=== PATIENT | male | born 1960 | race Caucasian/White ===

== ENCOUNTER 2018-06-28 10:17 | Emergency (ER) | payer MEDICAID ==
[~2018-06-28] VITALS: Ht 185.4 cm; Wt 65.0 kg
[~2018-06-28 10:17] MED LIST: BUDE10.2 IH; HYDR-882 PO; NAPR-685 PO; OMEP-110 PO
[2018-06-28 10:26] VITALS: BP 169/101
== END 2018-06-28 11:23 | disposition home or self-care (01) ==
LOC: ED 11:11
DX: L24.9 Irritant contact dermatitis, unspecified cause (principal); K21.9 Gastro-esophageal reflux disease without esophagitis; I10 Essential (primary) hypertension; J44.9 Chronic obstructive pulmonary disease, unspecified; F17.200 Nicotine dependence, unspecified, uncomplicated
CPT/HCPCS: 99283; J7512

== ENCOUNTER 2018-08-03 21:35 | Emergency (ER) | payer MEDICAID ==
[~2018-08-03] VITALS: Ht 182.9 cm; Wt 70.0 kg
[2018-08-03 21:45] VITALS: BP 164/87
== END 2018-08-03 22:27 | disposition left against medical advice (07) ==
LOC: ED 22:25
DX: R21 Rash and other nonspecific skin eruption (principal); Z53.21 Procedure and treatment not carried out due to patient leaving prior to being seen by health care provider

== ENCOUNTER 2018-08-13 15:17 | Emergency (ER) | payer MEDICAID ==
[~2018-08-13] VITALS: Ht 182.9 cm; Wt 68.7 kg
[2018-08-13 16:04] VITALS: BP 133/76
== END 2018-08-13 17:06 | disposition left against medical advice (07) ==
LOC: ED 16:15
DX: R21 Rash and other nonspecific skin eruption (principal)
CPT/HCPCS: 99281

== ENCOUNTER 2018-08-13 19:49 | Emergency (ER) | payer MEDICAID ==
[~2018-08-13] VITALS: Ht 182.9 cm; Wt 68.5 kg
[2018-08-13 19:54] VITALS: BP 147/78
[2018-08-13] MEDS ORDERED: TRIAMCINOLONE OINT 0.1%, 15GM TP ONE (20:30)
[2018-08-13 20:33] LABS: BASOPHILS # (AUTO) 0.05 x10^3/uL (0-0.1); BASOPHILS % (AUTO) 1 % (0-1); EOSINOPHILS # (AUTO) 0.27 x10^3/uL (0-0.4); EOSINOPHILS % (AUTO) 3 % (1-7); LYMPHOCYTES # (AUTO) 2.17 x10^3/uL (1-3.4); LYMPHOCYTES % (AUTO) 21 % (22-44); MD NO; MEAN CORPUSCULAR HEMOGLOBIN 31.1 pg (27.5-34.5); MEAN CORPUSCULAR HGB CONC 33.5 g/dL (33.2-36.2); MEAN CORPUSCULAR VOLUME 92.8 fL (81-97); MEAN PLATELET VOLUME 6.9 fL (7.4-10.4); MONOCYTES # (AUTO) 1.17 x10^3/uL (0.2-0.8); MONOCYTES % (AUTO) 11 % (2-9); NEUTROPHILS # (AUTO) 6.96 x10^3/uL (1.8-6.8); NEUTROPHILS % (AUTO) 66 % (42-75); PLATELET COUNT 444 x10^3/uL (130-400); RED CELL DISTRIBUTION WIDTH 13.7 % (9.4-14.8)
[2018-08-13 20:42] LABS: ANION GAP 12 mmol/L (5-15); CALCIUM 8.7 mg/dL (8.5-10.1); CHLORIDE 105 mmol/L (98-107)
[2018-08-13 20:43] LABS: CREATININE 0.97 mg/dL (0.7-1.3)
== END 2018-08-13 21:28 | disposition home or self-care (01) ==
LOC: ED 21:00
DX: R21 Rash and other nonspecific skin eruption (principal); M79.89 Other specified soft tissue disorders; K21.9 Gastro-esophageal reflux disease without esophagitis; Z86.73 Personal history of transient ischemic attack (TIA), and cerebral infarction without residual deficits; J44.9 Chronic obstructive pulmonary disease, unspecified; M19.90 Unspecified osteoarthritis, unspecified site; Z79.899 Other long term (current) drug therapy
CPT/HCPCS: 36415; 80048; 85025; 99284

== ENCOUNTER 2019-01-28 20:23 | Emergency (ER) | payer MEDICAID ==
[~2019-01-28 20:23] MED LIST changes: +HYDR-3653 PO; -HYDR-882 PO
[2019-01-28 20:54] LABS: BASOPHILS # (AUTO) 0.07 x10^3/uL (0-0.1); BASOPHILS % (AUTO) 1 % (0-1); EOSINOPHILS # (AUTO) 0.24 x10^3/uL (0-0.4); EOSINOPHILS % (AUTO) 3 % (1-7); LYMPHOCYTES # (AUTO) 2.48 x10^3/uL (1-3.4); LYMPHOCYTES % (AUTO) 27 % (22-44); MD NO; MEAN CORPUSCULAR HGB CONC 33.9 g/dL (33.2-36.2); MEAN CORPUSCULAR VOLUME 91.4 fL (81-97); MONOCYTES # (AUTO) 0.88 x10^3/uL (0.2-0.8); MONOCYTES % (AUTO) 10 % (2-9); NEUTROPHILS # (AUTO) 5.55 x10^3/uL (1.8-6.8); NEUTROPHILS % (AUTO) 60 % (42-75); PLATELET COUNT 361 x10^3/uL (130-400); RED BLOOD COUNT 4.63 x10^6/uL (4.38-5.82); RED CELL DISTRIBUTION WIDTH 13.8 % (9.4-14.8)
--- NOTE | 2019-01-28 21:05 | NUR ---
PT RESTING ON CHRISSY SLADEAILS UP X2, CALL LIGHT WITHIN REACH. AWAITING LAB RESULT, PROVIDED PT WITH URINE CUP FOR SAMPLE
[2019-01-28 21:07] LABS: ALANINE AMINOTRANSFERASE 17 U/L (12-78); ALBUMIN 3.9 g/dL (3.4-5.0); ANION GAP 6 mmol/L (5-15); CALCIUM 8.9 mg/dL (8.5-10.1); CHLORIDE 107 mmol/L (98-107); CREATININE 1.05 mg/dL (0.7-1.3)
[2019-01-28 21:10] LABS: ALKALINE PHOSPHATASE 94 U/L (45-117); BILIRUBIN,TOTAL 0.2 mg/dL (0.2-1.0); TOTAL PROTEIN 7.2 g/dL (6.4-8.2)
--- NOTE | 2019-01-28 21:20 | NUR ---
URINE SAMPLE SENT TO LAB.
[2019-01-28] MEDS ORDERED: SODIUM CHLORIDE FLUSH 10ML SYR IVF ONE (21:30)
[2019-01-28 21:37] LABS: MICROSCOPIC NOT IND
[2019-01-28 21:48] LABS: CULTURE INDICATED? NO
[2019-01-28] MEDS ORDERED: OMNIPAQUE 350 MG/ML, 100ML BOTTLE ONE (22:21)
[2019-01-28 22:29] VITALS: BP 148/94
[2019-01-28] MEDS ORDERED: FLUT5POW4 NAS (22:33)
[2019-01-28] MEDS ORDERED: ALBU18HF INH (22:33)
[2019-01-28] MEDS ORDERED: MELO7.5T31 PO (22:33)
[2019-01-28] MEDS ORDERED: FAMO20TA7 PO (22:33)
--- NOTE | 2019-01-28 22:34 | NUR ---
PT RESTING ON GURNEY, MONITORS IN PLACE, CALL LIGHT WITHIN REACH, DENIES NEEDS AT THIS TIME. AWAITING CT RESULT
== END 2019-01-28 23:03 | disposition home or self-care (01) ==
LOC: ED 22:26
DX: R10.31 Right lower quadrant pain (principal); K76.0 Fatty (change of) liver, not elsewhere classified; D73.89 Other diseases of spleen; K21.9 Gastro-esophageal reflux disease without esophagitis; J44.9 Chronic obstructive pulmonary disease, unspecified; F17.200 Nicotine dependence, unspecified, uncomplicated; M19.90 Unspecified osteoarthritis, unspecified site; Z86.718 Personal history of other venous thrombosis and embolism
CPT/HCPCS: 36415; 74177; 80053; 81003; 83690; 85025; 99284; Q9967

== ENCOUNTER 2019-03-19 14:25 | Emergency (ER) | payer MEDICAID ==
[~2019-03-19] VITALS: Ht 185.4 cm; Wt 70.0 kg
[~2019-03-19 14:25] MED LIST changes: +ALBU18HF INH; +FAMO20TA7 PO; +FLUT5POW4 NAS; +MELO7.5T31 PO
[2019-03-19 14:27] VITALS: BP 161/67
--- NOTE | 2019-03-19 15:18 | NUR ---
PT GIVEN DC INSTRUCTIONS AND SCRIPT, EDUCATED REGARDING RX FOR TRIAMCINOLONE AND PREDNISONE. PT A&O, RESPS EVEN AND UNLABORED, NADN AT DC.
== END 2019-03-19 15:19 | disposition home or self-care (01) ==
LOC: ED 15:10
DX: L20.9 Atopic dermatitis, unspecified (principal); J44.9 Chronic obstructive pulmonary disease, unspecified; K21.9 Gastro-esophageal reflux disease without esophagitis
CPT/HCPCS: 99283

== ENCOUNTER 2019-04-04 05:04 | Emergency (ER) | payer MEDICAID ==
[~2019-04-04] VITALS: Ht 185.4 cm; Wt 71.3 kg
--- NOTE | 2019-04-04 05:29 | NUR ---
PT RESTING IN GURNEY AT THIS TIME. NADN. PT CALM AT THIS TIME. AWAITING ERP FOR PT HISTORY AND ASSESSMENT. PT HAS CALL LIGHT WITHIN REACH.
[2019-04-04] MEDS ORDERED: MAALOX/HYOSCYAMINE/LIDOCAINE 45 ML BTL ONE (05:36)
--- NOTE | 2019-04-04 05:44 | NUR ---
PT MEDICATED PER MAR
[2019-04-04] MEDS ORDERED: MAALOX/HYOSCYAMINE/LIDOCAINE 45 ML BTL PO ONE (06:00)
--- NOTE | 2019-04-04 06:43 | NUR ---
PT STATES THAT HE IS FEELING BETTER AND THAT "THE OBJECT IS STARTING TO GO DOWN MY THROAT". PT HAS CALL LIGHT WITHIN REACH AT THIS TIME.
--- NOTE | 2019-04-04 07:03 | NUR ---
BS REPORT OF PT TO ROBERT NGUYEN. ALL QUESTIONS ANSWERED.
--- NOTE | 2019-04-04 07:10 | NUR ---
Report from Aric JONES. Pt has NAD at this time. Pending d/c
--- NOTE | 2019-04-04 07:19 | NUR ---
D/c paperwork given, pt verbalizes understanding and f/u as needed. Pt ambulated steadily out of ED. No additional questions or concerns.
[2019-04-04 07:20] VITALS: BP 127/93
== END 2019-04-04 07:26 | disposition home or self-care (01) ==
LOC: ED 06:08
DX: S27.818A Other injury of esophagus (thoracic part), initial encounter (principal); J44.9 Chronic obstructive pulmonary disease, unspecified; K21.9 Gastro-esophageal reflux disease without esophagitis; X58.XXXA Exposure to other specified factors, initial encounter; Y93.89 Activity, other specified; Y92.89 Other specified places as the place of occurrence of the external cause; Y99.8 Other external cause status
CPT/HCPCS: 70360; 99283

== ENCOUNTER 2019-05-11 20:32 | Emergency (ER) | payer MEDICAID ==
[~2019-05-11] VITALS: Ht 185.4 cm; Wt 70.9 kg
[2019-05-11 20:38] VITALS: BP 141/68
--- NOTE | 2019-05-11 21:38 | NUR ---
DC EDUCATION PROVIDED, PT DEMONSTRATES UNDERSTANDING. PT AMBULATED STEADILY TO DC WITH RN.
== END 2019-05-11 21:39 | disposition home or self-care (01) ==
LOC: ED 21:00
DX: L40.0 Psoriasis vulgaris (principal); L50.9 Urticaria, unspecified; K21.9 Gastro-esophageal reflux disease without esophagitis
CPT/HCPCS: 99283; J7512

== ENCOUNTER 2019-05-17 19:33 | Emergency (ER) | payer MEDICAID ==
[~2019-05-17] VITALS: Ht 185.4 cm; Wt 74.0 kg
[2019-05-17 19:36] VITALS: BP 137/77
--- NOTE | 2019-05-17 19:49 | NUR ---
PT STATES HE WAS GIVEN A STEROID INJECTION LAST WEEK FOR PSORIASIS TO BILAT ARMS. THEN 4 DAYS AGO STARTED HAVING SWELLING, REDNESS, AND PAIN TO L ELBOW. L ELBOW SIGNIFICANTLY SWOLLEN AND LIMITED ROM.
[2019-05-17] MEDS ORDERED: LIDOCAINE-MPF 1%, 5ML ONE (19:53)
[2019-05-17] MEDS ORDERED: CEFAZOLIN 1,000 MG IM ONE (20:00)
[2019-05-17] MEDS ORDERED: LIDOCAINE 2%, 20ML SQ ONE (20:00)
[2019-05-17] MEDS ORDERED: CEFAZOLIN 1,000 MG ONE (20:15)
--- NOTE | 2019-05-17 20:17 | NUR ---
L ELBOW NUMBED AND DRAINED BY ED PA. PT TOLERATED WELL.
--- NOTE | 2019-05-17 20:45 | NUR ---
L ELBOW I&D SITE DRESSED WITH GAUZE AND KERLIX. D/C INSTRUCTIONS, MEDS & F/U APPT RV'WD WITH PT, HE VERBALIZED UNDERSTANDING. RX GIVEN X3. CAB VOUCHER AND ESCORT OUT OF ED PROVIDED TO PT, PT AMBULATED OUT WITHOUT DIFFICULTY.
== END 2019-05-17 20:54 | disposition home or self-care (01) ==
LOC: ED 20:38
DX: L03.114 Cellulitis of left upper limb (principal); M70.22 Olecranon bursitis, left elbow; Y93.89 Activity, other specified; F10.220 Alcohol dependence with intoxication, uncomplicated; F17.200 Nicotine dependence, unspecified, uncomplicated
CPT/HCPCS: 10160; 96372; 99284; J0690; J3490

== ENCOUNTER 2019-05-24 05:30 | Emergency (ER) | payer MEDICAID ==
[~2019-05-24] VITALS: Ht 185.4 cm; Wt 69.8 kg
[2019-05-24 05:33] VITALS: BP 142/89
--- NOTE | 2019-05-24 05:58 | NUR ---
first contact with pt. pt c/o rash on both arms x 8 months. seen here for the same. + itching. redness noted. states " it feels like my arms on fire ". pt's aox4. resps even and unlabored. edmd at bedside to evaluate at this time.
== END 2019-05-24 06:07 | disposition home or self-care (01) ==
LOC: ED 05:59
DX: L03.114 Cellulitis of left upper limb (principal); K21.9 Gastro-esophageal reflux disease without esophagitis; J44.9 Chronic obstructive pulmonary disease, unspecified; F17.210 Nicotine dependence, cigarettes, uncomplicated
CPT/HCPCS: 99283

== ENCOUNTER 2020-07-08 07:40 | Emergency (ER) | payer MEDICAID ==
[~2020-07-08] VITALS: Ht 185.4 cm; Wt 72.5 kg
[2020-07-08 07:43] VITALS: BP 155/90
== END 2020-07-08 09:36 | disposition home or self-care (01) ==
LOC: ED 09:26
DX: I80.03 Phlebitis and thrombophlebitis of superficial vessels of lower extremities, bilateral (principal); K02.9 Dental caries, unspecified; K08.89 Other specified disorders of teeth and supporting structures; K21.9 Gastro-esophageal reflux disease without esophagitis; J44.9 Chronic obstructive pulmonary disease, unspecified; M19.90 Unspecified osteoarthritis, unspecified site; F17.200 Nicotine dependence, unspecified, uncomplicated; Z86.718 Personal history of other venous thrombosis and embolism
CPT/HCPCS: 93970; 99284

== ENCOUNTER 2020-07-12 13:20 | Emergency (ER) | payer MEDICAID ==
[~2020-07-12] VITALS: Ht 185.4 cm; Wt 73.4 kg
[2020-07-12 13:56] LABS: MEAN CORPUSCULAR HEMOGLOBIN 30.7 pg (27.5-34.5); MEAN CORPUSCULAR HGB CONC 33.3 g/dL (33.2-36.2); MEAN CORPUSCULAR VOLUME 92.4 fL (81-97); MEAN PLATELET VOLUME 7.5 fL (7.4-10.4); PLATELET COUNT 262 x10^3/uL (130-400); RED BLOOD COUNT 5.04 x10^6/uL (4.38-5.82)
[2020-07-12 13:58] LABS: MD YES
[2020-07-12] MEDS ORDERED: SODIUM CHLORIDE FLUSH 10ML SYR IVF ONE (14:00)
[2020-07-12] MEDS ORDERED: ONDANSETRON 2MG/ML, 2ML IVPush ONE (14:00)
[2020-07-12] MEDS ORDERED: MAALOX/HYOSCYAMINE/LIDOCAINE 45 ML BTL PO ONE (14:00)
[2020-07-12] MEDS ORDERED: SODIUM CHLORIDE 0.9% 1,000ML IVBOLUS ONE (14:00)
[2020-07-12] MEDS ORDERED: FAMOTIDINE 20 MG/2 ML IVPush ONE (14:00)
[2020-07-12] MEDS ORDERED: FAMOTIDINE 20 MG/2 ML ONE (14:05)
[2020-07-12] MEDS ORDERED: MAALOX/HYOSCYAMINE/LIDOCAINE 45 ML BTL ONE (14:05)
[2020-07-12 14:08] LABS: ALANINE AMINOTRANSFERASE 37 U/L (12-78); ALBUMIN 2.7 g/dL (3.4-5.0); ANION GAP 3 mmol/L (5-15); CALCIUM 8.4 mg/dL (8.5-10.1); CHLORIDE 104 mmol/L (98-107); CREATININE 0.86 mg/dL (0.7-1.3)
[2020-07-12] MEDS ORDERED: ONDANSETRON 2MG/ML, 2ML ONE (14:09)
[2020-07-12 14:10] LABS: ALKALINE PHOSPHATASE 129 U/L (45-117); BILIRUBIN,TOTAL 0.3 mg/dL (0.2-1.0); TOTAL PROTEIN 7.2 g/dL (6.4-8.2)
--- NOTE | 2020-07-12 15:05 | NUR ---
PT LAYING ON GURNEY, SLEEPING COMFORTABLY, NAD WITH EQUAL CHEST RISE/FALL, NO NEEDS AT THIS TIME, CALL LIGHT WITHIN REACH.
[2020-07-12 15:18] LABS: MICROSCOPIC NOT IND
[2020-07-12 15:50] LABS: LYMPHS% (MANUAL) 65 % (22-44); MONOS% (MANUAL) 5 % (2-9); REACTIVE LYMPHS # (MANUAL) 1.08 x10^3/uL (0-0); REACTIVE LYMPHS % (MANUAL) 9 % (0-0); SEG#(MANUAL) 2.52 x10^3/uL (1.8-6.8); SEGS% (MANUAL) 21 % (42-75)
[2020-07-12 15:51] LABS: ANISOCYTOSIS 1+
[2020-07-12 15:52] LABS: <PLATELET ESTIMATE> ADEQUATE; LARGE PLATELETS 1+; SMUDGE CELLS 1+
[2020-07-12] MEDS ORDERED: MORPHINE SULFATE 4 MG/ML, 1ML ONE (16:33)
[2020-07-12] MEDS ORDERED: OMNIPAQUE 350 MG/ML, 100ML BOTTLE ONE (16:43)
[2020-07-12] MEDS ORDERED: MORPHINE SULFATE 4 MG/ML, 1ML IVPush ONE (17:00)
[2020-07-12 17:01] VITALS: BP 150/99
--- NOTE | 2020-07-12 17:01 | NUR ---
PT UPRIGHT ON GURNEY AWAKE & MORE COMFORTABLE AFTER PAIN MED, RESPONDS APPROP TO STAFF, NAD, COMFORT MEASURES PROVIDED, CALL LIGHT WTIHIN REACH.
--- NOTE | 2020-07-12 17:30 | NUR ---
Patient given discharge instructions and Rx, they have confirmed that they understand the instructions. Patient ambulatory with steady gait.
== END 2020-07-12 17:59 | disposition home or self-care (01) ==
LOC: ED 14:25
DX: K29.20 Alcoholic gastritis without bleeding (principal); R10.13 Epigastric pain; R10.33 Periumbilical pain; I45.4 Nonspecific intraventricular block; R11.2 Nausea with vomiting, unspecified; J44.9 Chronic obstructive pulmonary disease, unspecified; M19.90 Unspecified osteoarthritis, unspecified site; K21.9 Gastro-esophageal reflux disease without esophagitis; Z86.718 Personal history of other venous thrombosis and embolism
CPT/HCPCS: 36415; 74022; 74177; 80053; 81003; 83690; 85025; 93005; 96361; 96374; 96375; 99285; J2270; J2405; J3490; J7030; Q9967

== ENCOUNTER 2020-08-09 22:14 | Emergency (ER) | payer MEDICAID ==
[~2020-08-09] VITALS: Ht 185.4 cm; Wt 68.0 kg
[2020-08-09] MEDS ORDERED: MAALOX/HYOSCYAMINE/LIDOCAINE 45 ML BTL PO ONE (22:30)
[2020-08-09] MEDS ORDERED: MAALOX/HYOSCYAMINE/LIDOCAINE 45 ML BTL ONE (22:31)
--- NOTE | 2020-08-09 22:41 | NUR ---
PT MEDICATED PER EMAR
[2020-08-09 23:17] LABS: BASOPHILS # (AUTO) 0.04 x10^3/uL (0-0.1); BASOPHILS % (AUTO) 1 % (0-1); EOSINOPHILS # (AUTO) 0.24 x10^3/uL (0-0.4); EOSINOPHILS % (AUTO) 3 % (1-7); LYMPHOCYTES # (AUTO) 2.57 x10^3/uL (1-3.4); LYMPHOCYTES % (AUTO) 29 % (22-44); MD NO; MEAN CORPUSCULAR HEMOGLOBIN 29.9 pg (27.5-34.5); MEAN CORPUSCULAR HGB CONC 32.3 g/dL (33.2-36.2); MEAN PLATELET VOLUME 7.3 fL (7.4-10.4); MONOCYTES # (AUTO) 0.68 x10^3/uL (0.2-0.8); MONOCYTES % (AUTO) 8 % (2-9); NEUTROPHILS # (AUTO) 5.24 x10^3/uL (1.8-6.8); NEUTROPHILS % (AUTO) 60 % (42-75); PLATELET COUNT 350 x10^3/uL (130-400); RED BLOOD COUNT 4.93 x10^6/uL (4.38-5.82); RED CELL DISTRIBUTION WIDTH 14.5 % (9.4-14.8)
[2020-08-09 23:23] LABS: ALBUMIN 3.4 g/dL (3.4-5.0); ANION GAP 5 mmol/L (5-15); CALCIUM 8.6 mg/dL (8.5-10.1); CHLORIDE 109 mmol/L (98-107)
[2020-08-09 23:30] LABS: ALANINE AMINOTRANSFERASE 23 U/L (12-78); ALKALINE PHOSPHATASE 112 U/L (45-117); BILIRUBIN,TOTAL 0.4 mg/dL (0.2-1.0); TOTAL PROTEIN 7.9 g/dL (6.4-8.2); TROPONIN I < 0.015 ng/mL (0.000-0.045)
[2020-08-09 23:39] VITALS: BP 151/92
== END 2020-08-10 00:10 | disposition home or self-care (01) ==
LOC: MERGE 22:14 → ED 23:17
DX: K29.00 Acute gastritis without bleeding (principal); F17.290 Nicotine dependence, other tobacco product, uncomplicated
CPT/HCPCS: 36415; 71045; 80053; 84484; 85025; 93005; 99285; 99406

== ENCOUNTER 2021-02-28 02:48 | Emergency (ER) | payer MEDICAID ==
[~2021-02-28] VITALS: Ht 185.4 cm; Wt 75.9 kg
[2021-02-28 02:56] VITALS: BP 154/97
== END 2021-02-28 04:25 | disposition home or self-care (01) ==
LOC: ED 03:47
DX: L40.9 Psoriasis, unspecified (principal); K21.9 Gastro-esophageal reflux disease without esophagitis
CPT/HCPCS: 99283; J7512; Q0177